=== PATIENT | female | born 2005 | race Caucasian/White ===

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

== ENCOUNTER 2024-06-10 09:41 | Outpatient (CLI) | payer OTHER ==
[2024-06-10 10:53] LABS: Amorphous Sediment,Urine Rare /hpf; Appearance,Urine Cloudy (Clear); Bacteria,Urine Occasional /hpf; Bilirubin,Urine Negative (Negative); Blood,Urine Negative (Negative); Budding Yeast,Urine Few /hpf; Color,Urine Light Yellow; Glucose,Urine (UA) Negative (Negative); Ketones,Urine Negative (Negative); Leukocyte Esterase,Urine Large (Negative); Mucus,Urine Rare /hpf; Nitrite,Urine Negative (Negative); Protein,Urine Negative (Negative); RBC,Urine 3 /hpf (0-5); Squamous Epithelial Cell,Urine 9 /hpf (0-4); Urobilinogen,Urine <2.0 mg/dL (<2.0); WBC,Urine 35 /hpf (0-5)
[2024-06-10 11:19] VITALS: BP 108/60; PULSE 83; RESP 16; TEMP 98
--- NOTE | 2024-06-14 11:13 | P.MSEPDOC ---
Presenting Problems - Arrival Data Date of Arrival on Unit: 06/10/24 Time of Arrival on Unit: 09:41 Mode of Transport: Ambulatory - Complaint OB-Reason for Admission/Chief Complaint: Pain Comment: sharp pain lower abd last night and 3 times this morning Medical History - Information : 1 Para: 0 Term: 0 : 0 Abortions: Spontaneous or Elective: 0 Number of Living Children: 0 - Gestational Age Gestational Age by MAXI (wks/days): 23 Weeks and 3 Days Review of Systems - Review of Systems Constitutional: No problems Breast: No problems ENT: No problems Cardiovascular: No problems Respiratory: No problems Gastrointestinal: No problems Genitourinary: No problems Musculoskeletal: No problems Neurological: No problems Skin: No problems Vital Signs - Temperature Temperature: 98.0 F Temperature Source: Temporal Artery Scan - Pulse Right Sitting Pulse Rate: 83 Pulse Assessment Method: Automatic Cuff - Respirations Respiratory Rate: 16 Oxygen Delivery Method: Room Air - Blood Pressure Right Arm Blood Pressure: 108/60 Blood Pressure Mean: 76 Blood Pressure Source: Automatic Cuff Medical Screen Scoring - Uterine Contractions Intensity: Mild Resting: Soft to palpation - Assessment - Baby A Baseline FHR: 130 Heart Rate - NICHD Category: Category I (Normal) NST: Reactive Physician Notification - Physician Notified Physician Notified Date: 06/10/24 Physician Notified Time: 11:01 Physician: Trina Jara Order Received: Yes (urine culture and d/c home) Maternal Triage Index - Non-Urgent/Priority 4 Non-Urgent Priority 4: Yes Criteria Met for Priority 4: reassuring fht for gestation, pt felt "slight" pain x1 in traige, urine sent for culture Disposition - Disposition OB Disposition: Discharge to home Discharge Date: 06/10/24 Discharge Time: 11:10 I agree with the RN Medical Screening Exam: Yes Case reviewed; plan agreed upon as documented in EMR&OBIX.: Yes Diagnosis: PELVIC AND PERINEAL PAIN
== END 2024-06-10 11:10 | disposition home or self-care (01) ==
LOC: FBPOP 09:41
PROVIDERS: ATTEND Obstetrics & Gynecology
CPT/HCPCS: 81001; 87077; 87086; 87186; 99213

== ENCOUNTER 2024-06-13 23:27 | Inpatient (IN) | payer OTHER ==
[2024-06-13] MEDS ORDERED: CARBOPROST TROMETHAMINE 250 MCG/ML 1 ML AMP IM PRN (23:46)
[2024-06-13] MEDS ORDERED: METHYLERGONOVINE 0.2 MG/ML 1 ML AMP IM PRN (23:46)
[2024-06-13] MEDS ORDERED: LIDOCAINE 0.5% (PF) 5 MG/ML (50 ML SDV) SQ PRN (23:46)
[2024-06-13] MEDS ORDERED: miSOPROStoL 200 MCG TAB PO PRN (23:46)
[2024-06-13] MEDS ORDERED: TERBUTALINE 1 MG/ML VIAL SQ PRN (23:46)
[2024-06-13] MEDS ORDERED: miSOPROStoL 200 MCG TAB RECTAL PRN (23:46)
[2024-06-13] MEDS ORDERED: OXYTOCIN 10 UNIT/ML 1 ML VIAL IM PRN (23:46)
[2024-06-14 00:26] LABS: Basophils % (A) 0 %; Eosinophils # (A) 0.2 k/uL (0-0.7); Eosinophils % (A) 3 %; HCT 29.5 % (34.0-46.0); HGB 10.2 gm/dL (11.4-16.0); Lymphocytes # (A) 2.3 k/uL (1.0-4.8); Lymphocytes % (A) 26 %; MCH 32.9 pg (25.0-35.0); MCHC 34.7 g/dL (31.0-37.0); MCV 94.9 fL (80.0-100.0); Monocytes # (A) 0.4 k/uL (0-1.0); Monocytes % (A) 5 %; Neutrophils # (A) 5.9 k/uL (1.3-7.7); Neutrophils % (A) 65 %; Platelet Count 288 k/uL (150-450); RBC 3.11 m/uL (3.80-5.40); RDW 12.4 % (11.5-15.5)
[2024-06-14] MEDS ORDERED: HYDROmorphone (PF) 1 MG/ML ONE (00:35)
[2024-06-14] MEDS ORDERED: ePHEDrine 50 MG/ML 1 ML VIAL ONE (00:35)
[2024-06-14] MEDS ORDERED: SUCCINYLCHOLINE CHLORIDE 200 MG/10 ML VIAL IV ONE (00:35)
[2024-06-14] MEDS ORDERED: ROCURONIUM 10 MG/ML (5 ML VIAL) IV ONE (00:35)
[2024-06-14] MEDS ORDERED: fentaNYL (PF) 50 MCG/ML 2 ML AMP ONE (00:35)
[2024-06-14] MEDS ORDERED: ceFAZolin 1,000 MG VIAL ONE (00:35)
[2024-06-14] MEDS ORDERED: OXYTOCIN 30 UNITS/500 ML NS BAG IV ONE (00:35)
[2024-06-14] MEDS ORDERED: METHYLERGONOVINE 0.2 MG/ML 1 ML AMP ONE (00:35)
[2024-06-14] MEDS ORDERED: PHENYLEPHRINE-0.9% NACL SYG 1,000 MCG/10 ML SYRINGE ONE (00:35)
[2024-06-14] MEDS ORDERED: WATER FOR INJECTION, STERILE 10 ML VIAL IV ONE (00:35)
[2024-06-14] MEDS ORDERED: SUGAMMADEX SODIUM 200 MG/2 ML SDV IV ONE (00:35)
[2024-06-14] MEDS ORDERED: PROPOFOL 10 MG/ML 20 ML VIAL IV ONE (00:35)
[2024-06-14] MEDS ORDERED: diphenhydrAMINE 25 MG CAP PO PRN (01:10)
[2024-06-14] MEDS ORDERED: ONDANSETRON 4 MG/2 ML VIAL IVP PRN (01:10)
[2024-06-14] MEDS ORDERED: diphenhydrAMINE 50 MG/ML 1 ML VIAL IVP PRN ×2 (01:10)
[2024-06-14] MEDS ORDERED: NALOXONE 0.4 MG/ML 1 ML VIAL IV PRN (01:10)
[2024-06-14] MEDS ORDERED: ZOLPIDEM 5 MG TAB PO PRN (01:10)
[2024-06-14] MEDS ORDERED: diphenhydrAMINE 50 MG CAP PO PRN (01:10)
[2024-06-14] MEDS ORDERED: METOCLOPRAMIDE 5 MG/ML 2 ML VIAL IVP PRN (01:10)
--- NOTE | 2024-06-14 01:20 | P.OP ---
Date of Procedure: 06/14/24 Preoperative Diagnosis: IUP at 24-0/7 weeks, active labor, placental abruption Postoperative Diagnosis: Same Procedure(s) Performed: section Anesthesia: KERRY Surgeon: Rahda Sanchez Records Manager #1: Alisha Lutz Estimated Blood Loss (ml): 327 IV fluids (ml): 500 Urine output (ml): 100 (Clear yellow) Pathology: other (Placenta) Condition: stable Disposition: observation Indications for Procedure: Placental abruption Operative Findings: Upon entering the uterus multiple blood clots were appreciated, fetus was noted to be high in the uterus delivered in a vertex presentation Description of Procedure: Patient was taken back to the operating suite where general anesthesia was obtained without difficulty by the anesthesia department. She was prepped and draped prior to administration of anesthesia Blanc catheter was placed in the labor and delivery suite. Pfannenstiel skin incision was made with a scalpel and carried through to the underlying layer of fascia. The fascia was incised in the midline and extended laterally. The superior aspect of the fascial incision was then grasped with Marcela clamps, elevated and the underlying rectus muscle was dissected off sharply. The inferior aspect of the fascial incision was then grasped with Marcela clamps, elevated and the underlying rectus muscle was dissected off sharply. The rectus muscles were the midline the peritoneum was identified and entered. The bladder blade was inserted into the pelvis. Hysterotomy incision was made infant was encountered in a vertex p resentation delivered umbilical cord was doubly clamped and cut. was handed off to waiting RN/pediatric team. Placenta was delivered manually and the uterus was cleared of all clots and debris. The uterus was delivered from the abdomen. The hysterotomy incision was closed with 0 Vicryl in a running locked fashion, a second imbricating suture was performed. A small amount of bleeding was noted on the lateral area of the hysterotomy incision therefore a [id number] suture was used to obtain hemostasis. The uterus was returned to the abdomen and the gutters were cleared of all clots and debris. The hysterotomy incision was inspected and found to be hemostatic. The rectus muscles were then loosely reapproximated. Any points of bleeding on the rectus muscles were made hemostatic with the Bovie. The fascia was then closed with 0 Vicryl in a running fashion from 1 lateral edge to the other. The subcutaneous tissue was noted to be hemostatic and closed with 3-0 Vicryl. The skin was then closed with 4-0 Vicryl in a subcuticular fashion. Steri-Strips and sterile dressings were applied. All counts were to be correct x 2. Patient tolerated procedure well.
--- NOTE | 2024-06-14 01:21 | P.HPOB ---
History of Present Illness H&P Date: 06/14/24 Chief Complaint: IUP at 23-6/7 weeks, contractions 19-year-old at 23-6/7 weeks, is dated by last menstrual period equal to 11-week ultrasound. Patient recently had her 20-week ultrasound revealing a slightly shortened cervix at 2.4, 2.1 with pressure some funneling was appreciated. Patient states throughout the day she began having pains coming and going that became more uncomfortable through the evening. She denied vaginal bleeding prior to presentation. Patient presented to labor and delivery very tearful/painful with noted vaginal bleeding on her underwear. Patient on exam was felt to be completely dilated with a bulging bag of water. On exam the bag of water was noted to be extruding from the vagina. blood work this patient is a blood type of A+ Review of Systems Constitutional: Denies chills, Denies fatigue, Denies fever Ears, nose, mouth and throat: Denies headache Cardiovascular: Denies leg edema Respiratory: Denies dyspnea Gastrointestinal: Denies nausea, Denies vomiting Genitourinary: Reports Past Medical History Past Medical History: No Reported History History of Any Multi-Drug Resistant Organisms: None Reported Past Surgical History: No Surgical Hx Reported Smoking Status: Never smoker Medications and Allergies Home Medications Medication Instructions Recorded Confirmed Type Ferrous Sulfate [Iron] 325 mg PO DAILY 06/10/24 06/10/24 History Vit No.179/Iron/Folic 1 each PO DAILY 06/10/24 06/10/24 History [ Tablet] Allergies Allergy/AdvReac Type Severity Reaction Status Date / Time No Known Allergies Allergy Verified 06/10/24 09:45 Exam Osteopathic Statement: *. No significant issues noted on an osteopathic structural exam other than those noted in the History and Physical/Consult. Intake and Output 06/13/24 06/13/24 06/14/24 14:59 22:59 06:59 Other: Weight 63.957 kg Targeted exam is done in the state in general is a well-nourished well-developed female in active labor, breathing is nonlabored, abdomen is gravid and appropriate for gestational age of 24 weeks. On cervical exam bulging bag of water within the entire vaginal vault is appreciated, rupture of membranes reveals initially clear fluid. Patient attempted pushing with extrusion of multiple blood clots. heart tones were appreciated via Doppler 120s. Results Result Diagrams: 06/13/24 23:45 Abnormal Lab Results - Last 24 Hours (Table) 06/13/24 Range/Units 23:45 RBC 3.11 L (3.80-5.40) m/uL Hgb 10.2 L (11.4-16.0) gm/dL Hct 29.5 L (34.0-46.0) % Assessment and Plan (1) 24 weeks gestation of Current Visit: Yes Status: Acute Code(s): Z3A.24 - 24 WEEKS GESTATION OF SNOMED Code(s): 260314014 (2) Active labor Current Visit: Yes Status: Acute Code(s): EXY6444 - SNOMED Code(s): 066030000 (3) Placental abruption Current Visit: Yes Status: Acute Code(s): O45.90 - PREMATURE SEPARATION OF PLACENTA, UNSP, UNSP TRIMESTER SNOMED Code(s): 095003860 Plan: 19-year-old G2, P0 at 2 3-6/7 weeks that presents in active labor. Patient was noted to be completely dilated with membranes visualized in the vaginal vault. Rupture membranes revealing clear fluid initially followed by extrusion of multiple clots and continued bleeding. Placental abruption was diagnosed and patient was taken back for emergent section. Significant other was counseled on need for section questions were answered, anesthesia is in room.
[2024-06-14] MEDS: LACTATED RINGERS 1,000 ML IV SCH ×2 (02:08→12:41)
[2024-06-14 02:19] VITALS: RESP 16
[2024-06-14] MEDS: OXYTOCIN 30 UNITS/500 ML NS 30 UNIT in SALINE 1 500ML.BAG IV SCH (03:03)
[2024-06-14] MEDS: HYDROmorphone PCA 10 MG/50 ML BAG IV PRN (03:03)
[2024-06-14] MEDS: IBUPROFEN IV 800 MG in SODIUM CHLORIDE 0.9% 250 ML IV SCH (07:29)
[2024-06-14] MEDS: SENNOSIDES-DOCUSATE SODIUM 1 EACH TAB PO SCH (07:34)
[2024-06-14] MEDS: IBUPROFEN 600 MG TAB PO SCH (07:34)
[2024-06-14] MEDS: PRENATAL VIT-IRON-FOLIC ACID 1 EACH TABLET PO SCH (10:18)
[2024-06-14] MEDS: ACETAMINOPHEN IV (For NPO) 1,000 MG in EMPTY BAG 1 BAG IVPB SCH (10:18)
[2024-06-14] MEDS: FERROUS SULFATE 325 MG TAB PO SCH (10:18)
[2024-06-14 10:37] LABS: Basophils % (A) 0 %; Eosinophils # (A) 0.1 k/uL (0-0.7); Eosinophils % (A) 1 %; Lymphocytes # (A) 1.2 k/uL (1.0-4.8); Lymphocytes % (A) 11 %; MCH 32.5 pg (25.0-35.0); MCHC 33.4 g/dL (31.0-37.0); MCV 97.2 fL (80.0-100.0); Mean Platelet Volume 7.5; Monocytes # (A) 0.4 k/uL (0-1.0); Monocytes % (A) 3 %; Neutrophils # (A) 9.2 k/uL (1.3-7.7); Neutrophils % (A) 84 %; Platelet Count 220 k/uL (150-450); RBC 1.96 m/uL (3.80-5.40); RDW 12.1 % (11.5-15.5); WBC 10.9 k/uL (4.0-11.0)
[2024-06-14 10:53] LABS: HCT 19.1 % (34.0-46.0); HGB 6.4 gm/dL (11.4-16.0)
[2024-06-14] MEDS: ACETAMINOPHEN TAB 500 MG TAB PO SCH (11:35)
[2024-06-14] MEDS: SIMETHICONE 80 MG CHEWABLE PO PRN (19:44)
[2024-06-14] MEDS: SUGAMMADEX SODIUM 200 MG/2 ML SDV IV ONE (19:57)
[2024-06-15 06:44] LABS: Basophils % (A) 0 %; Eosinophils # (A) 0.2 k/uL (0-0.7); Eosinophils % (A) 2 %; HCT 21.7 % (34.0-46.0); HGB 7.1 gm/dL (11.4-16.0); Lymphocytes # (A) 1.5 k/uL (1.0-4.8); Lymphocytes % (A) 18 %; MCH 32.4 pg (25.0-35.0); MCHC 32.9 g/dL (31.0-37.0); MCV 98.7 fL (80.0-100.0); Mean Platelet Volume 7.9; Monocytes # (A) 0.4 k/uL (0-1.0); Monocytes % (A) 5 %; Neutrophils % (A) 74 %; Platelet Count 216 k/uL (150-450); RDW 12.4 % (11.5-15.5); WBC 8.1 k/uL (4.0-11.0)
[2024-06-15 07:39] VITALS: BP 90/58; PULSE 72; TEMP 98.1
--- NOTE | 2024-07-01 18:28 | CDI ---
Documentation Clarification Form Date: 07/01/2024 06:15:12 PM From: Natalie Moore Admit Date: 06/13/2024 11:48:00 PM Patient Name: Galilea Conteh Visit Number: [id number] Discharge Date: 06/15/2024 05:38:00 PM ATTENTION: The Clinical Documentation Specialists (CDI) and [facility] Coding Staff appreciate your assistance in clarifying documentation. Please respond to the clarification below the line at the bottom and electronically sign. The CDI & [facility] Coding staff will review the response and follow-up if needed. Please note: Queries are made part of the Legal Health Record. If you have any questions, please contact the author of this message via ITS. Doctor/Provider: Radha Sanchez Your patient has a hemoglobin/hematocrit level of 6.4 and 19.1 on 06/14/24. Please clarify if there is an additional diagnosis and/or clinical significance related to these lab values. History/Risk Factors: patient is a at 23 6/7 weeks . Clinical indicators: patient presented at 23 6/7 weeks with pain, very tearful, noted vaginal bleeding, and completely dilated with a bulging bag of water. Rupture revealed clear fluid followed by extrusion of multiple clots and continued bleeding. Patient attempted to push, however; placental abruption was diagnosed and she was taken back for an emergent section. EBL during C/S: 327 HGB 06/13/24 10.2, 06/14/24 6.4, 06/15/24 7.1 HCT 06/13/24 29.5, 06/14/24 19.1, 06/15/24 21.7 Treatment: patient underwent emergent section and was transfused with 1 unit PRBC Is there an additional diagnosis and/or clinical significance related to the above lab result/information: [ X] Acute blood loss anemia [ ] Acute on chronic blood loss anemia [ ] No additional diagnosis/Not clinically significant [ ] Unable to determine [ ] Other, please specify MTDD
== END 2024-06-15 17:38 | disposition home or self-care (01) | DRG 540 ==
LOC: FBPOP 23:27 → 4FBP 23:48
PROVIDERS: ADMIT Obstetrics & Gynecology Obstetrics; ATTEND Obstetrics & Gynecology
PROC: 30233N1 Transfusion of Nonautologous Red Blood Cells into Peripheral Vein, Percutaneous Approach (ICD-10-PCS; principal; 2024-06-14 00:30)
PROC: 10D00Z1 Extraction of Products of Conception, Low, Open Approach (ICD-10-PCS; principal; 2024-06-14 00:30)
PROC: 10907ZC Drainage of Amniotic Fluid, Therapeutic from Products of Conception, Via Natural or Artificial Opening (ICD-10-PCS; principal; 2024-06-14 00:30)
DX: O45.92 Premature separation of placenta, unspecified, second trimester (principal); O26.872 Cervical shortening, second trimester; O99.02 Anemia complicating childbirth; D62 Acute posthemorrhagic anemia; Z79.899 Other long term (current) drug therapy; Z28.310 Unvaccinated for COVID-19; Z3A.23 23 weeks gestation of pregnancy; Z37.0 Single live birth
CPT/HCPCS: 85025; 86850; 86900; 86901; 86920; 88305; 99215

== ENCOUNTER 2024-11-28 16:38 | Emergency (ER) | payer OTHER ==
[2024-11-28 16:45] VITALS: RESP 16; TEMP 98.8
[2024-11-28] MEDS: SODIUM CHLORIDE 0.9% 1,000 ML IV ONE (17:40)
--- NOTE | 2024-11-28 17:45 | ED ---
Abdominal Pain HPI - General Chief Complaint: Abdominal Pain Stated Complaint: preg cramping Time Seen by Provider: 11/28/24 16:48 Source: patient Mode of arrival: ambulatory Limitations: no limitations - History of Present Illness Initial Comments: 19-year-old female presenting with chief complaint of pelvic pain. She believes she is 5 weeks , LMP October 24 positive at-home test. This is her third , she has had 1 miscarriage and 1 stillbirth. No vaginal bleeding. No back pain. No dysuria or hematuria. No urgency or frequency. She is having nausea which has been happening throughout her . - Related Data Home Medications Medication Instructions Recorded Confirmed Ferrous Sulfate [Iron] 325 mg PO DAILY 06/10/24 06/10/24 Vit No.179/Iron/Folic 1 each PO DAILY 06/10/24 06/10/24 [ Tablet] Previous Rx's Medication Instructions Recorded Vit No.179/Iron/Folic 1 each PO DAILY #30 tab 11/28/24 [ Tablet] Allergies Allergy/AdvReac Type Severity Reaction Status Date / Time No Known Allergies Allergy Verified 06/10/24 09:45 Review of Systems ROS Statement: Those systems with pertinent positive or pertinent negative responses have been documented in the HPI. ROS Other: All systems not noted in ROS Statement are negative. Past Medical History Past Medical History: No Reported History History of Any Multi-Drug Resistant Organisms: None Reported Past Surgical History: No Surgical Hx Reported Past Psychological History: Anxiety, Bipolar, Depression Smoking Status: Never smoker Past Alcohol Use History: None Reported Past Drug Use History: None Reported General Exam Limitations: no limitations General appearance: alert, in no apparent distress Head exam: Present: atraumatic, normocephalic, normal inspection Eye exam: Present: normal appearance, EOMI Neck exam: Present: normal inspection. Absent: meningismus Respiratory exam: Present: normal lung sounds bilaterally. Absent: respiratory distress, wheezes, rales, rhonchi, stridor Cardiovascular Exam: Present: regular rate, normal rhythm, normal heart sounds. Absent: systolic murmur, diastolic murmur, rubs, gallop, clicks GI/Abdominal exam: Present: soft. Absent: distended, tenderness, guarding, rebound, rigid Neurological exam: Present: alert, oriented X3 Psychiatric exam: Present: normal affect, normal mood Skin exam: Present: warm, dry, normal color Course Vital Signs 11/28/24 11/28/24 16:42 19:47 Temperature 98.8 F Pulse Rate 87 78 Respiratory 16 16 Rate Blood Pressure 113/63 111/64 O2 Sat by Pulse 99 100 Oximetry Medical Decision Making - Medical Decision Making Was pt. sent in by a medical professional or institution ([facility], MANAGER MANUFACTURING, urgent care, hospital, or skilled nursing...) When possible be specific @ -No Did you speak to anyone other than the patient for history (EMS, parent, family, police, friend...)? What history was obtained from this source @ -No Did you review nursing and triage notes (agree or disagree)? Why? @ -I reviewed and agree with nursing and triage notes Were old charts reviewed (outside hosp., previous admission, EMS record, old EKG, old radiological studies, urgent care reports/EKG's, skilled nursing records)? Report findings @ -No old charts were reviewed Differential Diagnosis (chest pain, altered mental status, abdominal pain women, abdominal pain men, vaginal bleeding, weakness, fever, dyspnea, syncope, headache, dizziness, GI bleed, back pain, seizure, CVA, palpatations, mental health, musculoskeletal)? @ -MDM Differential Abdominal Pain Women: Appendicitis, Cholecystitis, diverticulosis, ischemic bowel, pancreatitis, hepatitis, UTI, gastroenteritis, AAA, incarcerated hernia, bowel obstruction, constipation, inflammatory bowel, hepatitis, peptic ulcer disease, splenic infarction, perforated viscus, vulvitis, ovarian torsion, PID, kidney stone, shandra centa abruption... This is not meant to be an all-inclusive list EKG interpreted by me (3pts min.). @ -As above X-rays interpreted by me (1pt min.). @ -None done CT interpreted by me (1pt min.). @ -None done U/S interpreted by me (1pt. min.). @ -Ultrasound shows no evidence of intrauterine gestational sac. If positive beta-hCG this could represent early , ectopic , or spontaneous . What testing was considered but not performed or refused? (CT, X-rays, U/S, labs)? Why? @ -None What meds were considered but not given or refused? Why? @ -None Did you discuss the management of the patient with other professionals (professionals i.e. Dr., PA, MANAGER MANUFACTURING, lab, RT, psych nurse, social media marketing specialist, hose turner, teacher, child support case officer, registered nurse hh case manager)? Give summary @ -No Was smoking cessation discussed for >3mins.? @ -No Was critical care preformed (if so, how long)? @ -No Were there social determinants of health that impacted care today? How? (Homelessness, low income, unemployed, alcoholism, drug addiction, transportation, low edu. Level, literacy, decrease access to med. care, fdc, rehab)? @ -No Was there de-escalation of care discussed even if they declined (Discuss DNR or withdrawal of care, Hospice)? DNR status @ -No What co-morbidities impacted this encounter? (DM, HTN, Smoking, COPD, CAD, Cancer, CVA, ARF, Chemo, Hep., AIDS, mental health diagnosis, sleep apnea, morbid obesity)? @ -None Was patient admitted / discharged? Hospital course, mention meds given and route, prescriptions, significant lab abnormalities, going to OR and other pertinent info. @ -19-year-old female presenting with chief complaint of pelvic pain. She estimates herself to be about 5 weeks . No vaginal bleeding. History and physical examination are conducted. Lab work shows no leukocytosis or anemia. hCG is 13,338.6. Urine shows signs of contamination with 9 squamous cells. Ultrasound shows no intrauterine gestational sac. This may be due to early but cannot rule out ectopic or spontaneous . Patient is educated on today's findings. She is provided with an order for repeat beta-hCG in 48 hours. She will follow-up with her WIRE WEAVING LOOM SETTER Dr. Sanchez. She is sent vitamins. Report back to ER with any new or worsening symptoms. Discussed return parameters and answered all questions. Patient conveyed verbal understanding and agreed to the plan. I discussed this case in detail with my attending Dr. Ring Undiagnosed new problem with uncertain prognosis? @ -No Drug Therapy requiring intensive monitoring for toxicity (Heparin, Nitro, Insulin, Cardizem)? @ -No Were any procedures done? @ -No Diagnosis/symptom? @ -Threatened Acute, or Chronic, or Acute on Chronic? @ -Acute Uncomplicated (without systemic symptoms) or Complicated (systemic symptoms)? @ -Uncomplicated Side effects of treatment? @ -No Exacerbation, Progression, or Severe Exacerbation? @ -No Poses a threat to life or bodily function? How? (Chest pain, USA, PA, pneumonia, PE, COPD, DKA, ARF, appy, cholecystitis, CVA, Diverticulitis, Homicidal, Suicidal, threat to staff... and all critical care pts) @ -Low likelihood - Lab Data Result diagrams: 11/28/24 17:41 11/28/24 17:41 Lab Results 11/28/24 11/28/24 11/28/24 Range/Units 17:41 17:41 17:47 WBC 9.8 (4.0-11.0) k/uL RBC 4.18 (3.80-5.40) m/uL Hgb 12.5 (11.4-16.0) gm/dL Hct 40.0 (34.0-46.0) % MCV 95.7 (80.0-100.0) fL MCH 30.0 (25.0-35.0) pg MCHC 31.3 (31.0-37.0) g/dL RDW 12.7 (11.5-15.5) % Plt Count 413 (150-450) k/uL MPV 7.3 Neutrophils % 74 % Lymphocytes % 18 % Monocytes % 5 % Eosinophils % 2 % Basophils % 0 % Neutrophils # 7.2 (1.3-7.7) k/uL Lymphocytes # 1.8 (1.0-4.8) k/uL Monocytes # 0.5 (0-1.0) k/uL Eosinophils # 0.2 (0-0.7) k/uL Basophils # 0.0 (0-0.2) k/uL Sodium 137 (137-145) mmol/L Potassium 4.3 (3.5-5.1) mmol/L Chloride 104 (98-107) mmol/L Carbon Dioxide 24 (22-30) mmol/L Anion Gap 9 mmol/L BUN 13 (7-17) mg/dL Creatinine 0.58 (0.52-1.04) mg/dL Est GFR (CKD-EPI)AfAm >90 (>60 ml/min/1.73 sqM) Est GFR (CKD-EPI)NonAf >90 (>60 ml/min/1.73 sqM) Glucose 88 (74-99) mg/dL Calcium 10.1 (8.4-10.2) mg/dL Total Bilirubin 0.4 (0.2-1.3) mg/dL AST 18 (14-36) U/L ALT 13 (4-34) U/L Alkaline Phosphatase 43 (38-126) U/L Total Protein 7.4 (6.3-8.2) g/dL Albumin 4.6 (3.5-5.0) g/dL HCG, Quant 62016.6 mIU/mL Urine Color Light Yellow Urine Appearance Turbid H (Clear) Urine pH 6.5 (5.0-8.0) Ur Specific [place] 1.022 (1.001-1.035) Urine Protein Negative (Negative) Urine Glucose (UA) Negative (Negative) Urine Ketones Negative (Negative) Urine Blood Negative (Negative) Urine Nitrite Negative (Negative) Urine Bilirubin Negative (Negative) Urine Urobilinogen <2.0 (<2.0) mg/dL Ur Leukocyte Esterase Negative (Negative) Urine RBC 3 (0-5) /hpf Urine WBC 1 (0-5) /hpf Ur Squamous Epith Cells 9 H (0-4) /hpf Amorphous Sediment Many H (None) /hpf Disposition Clinical Impression: Threatened miscarriage Disposition: HOME SELF-CARE Condition: Good Instructions (If sedation given, give patient instructions): Threatened Miscarriage (ED) Additional Instructions: Follow-up with WIRE WEAVING LOOM SETTER. Report back to ER with any new or worsening symptoms. Obtain repeat beta-hCG in 48 hours Prescriptions: Vit No.179/Iron/Folic [ Tablet] 1 each PO DAILY #30 tab Is patient prescribed a controlled substance at d/c from ED?: No Referrals: None,Stated [REFERRING] - 1-2 days Radha Sanchez DO [Primary Care Provider] - 1-2 days Time of Disposition: 19:37
[2024-11-28 17:54] LABS: Basophils % (A) 0 %; Eosinophils # (A) 0.2 k/uL (0-0.7); Eosinophils % (A) 2 %; HGB 12.5 gm/dL (11.4-16.0); Lymphocytes # (A) 1.8 k/uL (1.0-4.8); Lymphocytes % (A) 18 %; MCHC 31.3 g/dL (31.0-37.0); MCV 95.7 fL (80.0-100.0); Mean Platelet Volume 7.3; Monocytes # (A) 0.5 k/uL (0-1.0); Monocytes % (A) 5 %; Neutrophils # (A) 7.2 k/uL (1.3-7.7); Neutrophils % (A) 74 %; Platelet Count 413 k/uL (150-450); RBC 4.18 m/uL (3.80-5.40); RDW 12.7 % (11.5-15.5); WBC 9.8 k/uL (4.0-11.0)
[2024-11-28 18:17] LABS: Amorphous Sediment,Urine Many /hpf; Appearance,Urine Turbid (Clear); Bilirubin,Urine Negative (Negative); Blood,Urine Negative (Negative); Color,Urine Light Yellow; Glucose,Urine (UA) Negative (Negative); Ketones,Urine Negative (Negative); Leukocyte Esterase,Urine Negative (Negative); Nitrite,Urine Negative (Negative); PH, Urine 6.5 (5.0-8.0); Protein,Urine Negative (Negative); RBC,Urine 3 /hpf (0-5); Specific Gravity,Urine 1.022 (1.001-1.035); Squamous Epithelial Cell,Urine 9 /hpf (0-4); Urobilinogen,Urine <2.0 mg/dL (<2.0); WBC,Urine 1 /hpf (0-5)
[2024-11-28 18:27] LABS: ALT 13 U/L (4-34); AST 18 U/L (14-36); African American GFR (CKD) >90 (>60 ml/min/1.73 sqM); Albumin 4.6 g/dL (3.5-5.0); Alkaline Phosphatase 43 U/L (38-126); Anion Gap 9 mmol/L; Blood Urea Nitrogen 13 mg/dL (7-17); Calcium 10.1 mg/dL (8.4-10.2); Carbon Dioxide 24 mmol/L (22-30); Chloride 104 mmol/L (98-107); Glucose 88 mg/dL (74-99); Non-African American GFR(CKD) >90 (>60 ml/min/1.73 sqM); Potassium 4.3 mmol/L (3.5-5.1); Sodium 137 mmol/L (137-145); Total Bilirubin 0.4 mg/dL (0.2-1.3); Total Protein 7.4 g/dL (6.3-8.2)
[2024-11-28 18:41] LABS: HCG,Quantitative Serum 13338.6 mIU/mL
--- NOTE | 2024-11-28 19:20 | US ---
EXAMINATION TYPE: Transabdominal DATE OF EXAM: 11/28/2024 7:10 PM COMPARISON: Prior ultrasound study 11/17/2020. CLINICAL INDICATION: Female, 19 years old with history of pain; Pelvic cramping TECHNIQUE: Transabdominal (TA) FINDINGS: EXAM MEASUREMENTS: GESTATIONAL AGE / DATING Physician Established: Not yet established Dates by LMP: (5 weeks/2 days) EDC: 07/29/2025 Dates by First Scan: No previous this is first scan Dates by Current Scan for: No IUP seen at this time MATERNAL ANATOMY Uterus: 7.3 x 4.1 x 5.8cm, thickened endometrium Right Ovary: 2.7 x 1.9 x 2.2cm Left Ovary: 2.6 x 1.4 x 1.7cm Post CDS / Adnexa: wnl Presence of free fluid: no Presence of corpus luteal cyst: right ovary - 1.7 x 1.1 x 1.7cm Presence of subchorionic bleed: no GESTATION / SURVEY IUP: No IUP seen at this time Date of LMP: 10/22/2024 Beta HcG (if available): 13,338.6 IMPRESSION: 1. No evidence of intrauterine gestational sac, correlate with B-hCG. If positive, this could represe nt early , ectopic or spontaneous . Follow up pelvic ultrasound in 5-7 day s and serial beta hCG studies are recommended. [facility], , 11/28/2024 7:17 PM
[2024-11-28 20:25] VITALS: BP 111/64; PULSE 78
== END 2024-11-28 19:47 | disposition home or self-care (01) ==
LOC: EC 16:38
DX: O20.0 Threatened abortion (principal)
CPT/HCPCS: 36415; 76801; 80053; 81001; 84702; 85025; 96360; 99284

== ENCOUNTER 2025-01-27 12:00 | Emergency (ER) | payer OTHER ==
[2025-01-27 12:11] VITALS: BP 100/64; PULSE 88; RESP 18; TEMP 98.3
--- NOTE | 2025-01-27 13:21 | ED ---
General Adult HPI - General Chief complaint: Recheck/Abnormal Lab/Rx Stated complaint: fall, 14 weeks Time Seen by Provider: 01/27/25 13:20 Source: patient Mode of arrival: ambulatory Limitations: no limitations - Related Data Home Medications Medication Instructions Recorded Confirmed Ferrous Sulfate [Iron] 325 mg PO DAILY 06/10/24 06/10/24 Vit No.179/Iron/Folic 1 each PO DAILY 06/10/24 06/10/24 [ Tablet] Previous Rx's Medication Instructions Recorded Vit No.179/Iron/Folic 1 each PO DAILY #30 tab 11/28/24 [ Tablet] Allergies Allergy/AdvReac Type Severity Reaction Status Date / Time No Known Allergies Allergy Verified 01/27/25 12:11 Review of Systems ROS Statement: Those systems with pertinent positive or pertinent negative responses have been documented in the HPI. ROS Other: All systems not noted in ROS Statement are negative. Past Medical History Past Medical History: No Reported History History of Any Multi-Drug Resistant Organisms: None Reported Past Surgical History: Section Past Psychological History: Anxiety, Bipolar, Depression Smoking Status: Never smoker Past Alcohol Use History: None Reported Past Drug Use History: None Reported General Exam Limitations: no limitations Course Vital Signs 01/27/25 12:07 Temperature 98.3 F Pulse Rate 88 Respiratory 18 Rate Blood Pressure 100/64 O2 Sat by Pulse 99 Oximetry Medical Decision Making - Medical Decision Making Was pt. sent in by a medical professional or institution ([facility], CORE DRILL OPERATOR HELPER, urgent care, hospital, or long-term...) When possible be specific @ -[No] Did you speak to anyone other than the patient for history (EMS, parent, family, police, friend...)? What history was obtained from this source @ -[No] Did you review nursing and triage notes (agree or disagree)? Why? @ -[I reviewed and agree with nursing and triage notes] Were old charts reviewed (outside hosp., previous admission, EMS record, old EKG, old radiological studies, urgent care reports/EKG's, long-term records)? Report findings @ -[No old charts were reviewed] Differential Diagnosis? @ -[chest pain, altered mental status, abdominal pain women, abdominal pain men, vaginal bleeding, weakness, fever, dyspnea, syncope, headache, dizziness, GI bleed, back pain, seizure, CVA, palpatations, mental health, musculoskeletal] EKG interpreted by me (3pts min.). @ -[As above] X-rays interpreted by me (1pt min.). @ -[None done] CT interpreted by me (1pt min.). @ -[None done] U/S interpreted by me (1pt. min.). @ -[None done] What testing was considered but not performed or refused? (CT, X-rays, U/S, labs)? Why? @ -[None] What meds were considered but not given or refused? Why? @ -[None] Did you discuss the management of the patient with other professionals (professionals i.e. DrLolly, PA, CORE DRILL OPERATOR HELPER, lab, RT, psych nurse, social worker delinquency prevention, csr technician, t eacher, grant officer, hospice case manager)? Give summary @ -[No] Was smoking cessation discussed for >3mins.? @ -[No] Was critical care preformed (if so, how long)? @ -[No] Were there social determinants of health that impacted care today? How? (Homelessness, low income, unemployed, alcoholism, drug addiction, transportation, low edu. Level, literacy, decrease access to med. care, long-term, rehab)? @ -[No] Was there de-escalation of care discussed even if they declined (Discuss DNR or withdrawal of care, Hospice)? DNR status @ -[No] What co-morbidities impacted this encounter? (DM, HTN, Smoking, COPD, CAD, Cancer, CVA, ARF, Chemo, Hep., AIDS, mental health diagnosis, sleep apnea, morbid obesity)? @ -[None] Was patient admitted / discharged? Hospital course, mention meds given and route, prescriptions, significant lab abnormalities, going to OR and other pertinent info. @ -[hospital course] Undiagnosed new problem with uncertain prognosis? @ -[No] Drug Therapy requiring intensive monitoring for toxicity (Heparin, Nitro, Insulin, Cardizem)? @ -[No] Were any procedures done? @ -[No] Diagnosis/symptom? @ -[default] Acute, or Chronic, or Acute on Chronic? @ -[default] Uncomplicated (without systemic symptoms) or Complicated (systemic symptoms)? @ -[default] Side effects of treatment? @ -[No] Exacerbation, Progression, or Severe Exacerbation? @ -[No] Poses a threat to life or bodily function? How? (Chest pain, USA, MD, pneumonia, PE, COPD, DKA, ARF, appy, cholecystitis, CVA, Diverticulitis, Homicidal, Suicidal, threat to staff... and all critical care pts) @ -[No] Disposition Referrals: None,Stated [Primary Care Provider] - 1-2 days
--- NOTE | 2025-01-27 13:22 | US ---
EXAMINATION TYPE: Transabdominal DATE OF EXAM: 01/27/2025 12:58 PM COMPARISON: US(11/28/2024 CLINICAL INDICATION: Female, 19 years old with history of fall; fall at work about an hour before com ing into ER, no pain or bleeding TECHNIQUE: Transabdominal (TA) with grayscale and color Doppler imaging including first trimester pre gnancy. FINDINGS: EXAM MEASUREMENTS: GESTATIONAL AGE / DATING Physician Established: (8 weeks/0 days) EDC: 07/29/25 Dates by First Scan: None Dates by Current Scan for: (13 weeks/1 days) EDC: 08/03/2025 MATERNAL ANATOMY Uterus: 10.3x8.6x9.2cm Placenta: Anterior placenta. Hypoechoic/cystic area seen: 1.8x0.8x0.9cm Right Ovary: not visualized due to overlying bowel Left Ovary: not visualized due to overlying bowel Post CDS / Adnexa: wnl Presence of free fluid: n/a Presence of corpus luteal cyst: n/a Presence of subchorionic bleed: n/a GESTATION / SURVEY CRL: 68.8 (13 weeks/1 days) Gestational Sac morphology: Normal Yolk Sac (normal less than 6mm): not seen at this time Cardiac Activity/Heart Rate: 149 bpm Rhythm: Normal IUP: Viable IUP Beta HcG (if available): Not available at this time IMPRESSION: 1. Single live intrauterine with gestational age of 13 weeks 1 day by CRL. This is much lar nichelle and discordant with established dates by LMP (8 weeks 0 days). Correlate as to accuracy of recall of LMP. 2. Anterior placenta with an internal cystic/hypoechoic area measuring 1.8 x 0.8 x 0.9 cm. A prominen t venous eden or chorioangioma are favored. An intraparenchymal hematoma is considered less likely gi betty the more cystic appearance. Follow-up ultrasound recommended to ensure stability of the finding. 3. Additional follow-up can be performed to assess for appropriate interval growth. In addition, feta l survey performed at 18-20 weeks. [facility], Workstation: [id number], 01/27/2025 1:20 PM
== END 2025-01-27 16:33 | disposition left against medical advice (07) ==
LOC: EC 12:00
DX: Z53.21 Procedure and treatment not carried out due to patient leaving prior to being seen by health care provider (principal)
CPT/HCPCS: 76801; 99499

== ENCOUNTER → 2025-04-08 | Outpatient (CLI) | payer OTHER ==
[2025-04-08 15:18] VITALS: BP 102/57; PULSE 81; RESP 16; TEMP 97.8
--- NOTE | 2025-05-26 10:08 | P.MSEPDOC ---
Presenting Problems - Arrival Data Date of Arrival on Unit: 04/08/25 Time of Arrival on Unit: 12:18 Mode of Transport: Ambulatory - Complaint OB-Reason for Admission/Chief Complaint: Other Comment: numbness in rt hip and leg for 30 minutes at work. then a sudden pain in rt side. didnt last long. hx of 24 week demise, abruption and emerency c/s. Medical History - Information : 2 Para: 0 Term: 0 : 0 Abortions: Spontaneous or Elective: 1 Number of Living Children: 0 - Gestational Age Gestational Age by MAXI (wks/days): 24 Weeks and 0 Days - History Complications: Other Review of Systems - Review of Systems Constitutional: No problems Breast: No problems ENT: No problems Cardiovascular: No problems Respiratory: No problems Gastrointestinal: No problems Genitourinary: No problems Musculoskeletal: No problems Neurological: No problems Skin: No problems Vital Signs - Temperature Temperature: 97.8 F Temperature Source: Oral - Pulse Radial Pulse Rate: 81 Pulse Assessment Method: Automatic Cuff - Respirations Respiratory Rate: 16 Oxygen Delivery Method: Room Air O2 Sat by Pulse Oximetry: 99 - Blood Pressure Right Arm Blood Pressure: 102/57 Blood Pressure Mean: 72 Blood Pressure Source: Automatic Cuff Medical Screen Scoring - Uterine Contractions Intensity: Absent - Assessment - Baby A Baseline FHR: 140 Heart Rate - NICHD Category: Category I (Normal) Physician Notification - Physician Notified Physician Notified Date: 04/08/25 Physician Notified Time: 12:45 Physician: Alisha Lutz Order Received: Yes (january discharge home after evaluation) Maternal Triage Index - Scheduled/Requesting Priority 5 Scheduled/Requesting Priority 5: Yes Criteria Met for Priority 5: see above Disposition - Disposition OB Disposition: Triage, Discharge to home Discharge Date: 04/08/25 Discharge Time: 13:00 I agree with the RN Medical Screening Exam: Yes Physician's MSE Comment: I have neither seen nor examined the patient Case reviewed; plan agreed upon as documented in EMR&OBIX.: Yes Diagnosis: RELATED CONDITIONS, UNSPECIFIED, SECOND TRIMESTER Additional Diagnoses: I have neither seen nor examined the patient
== END ==
LOC: FBPOP 12:07
PROVIDERS: ATTEND Obstetrics & Gynecology
DX: O26.892 Other specified pregnancy related conditions, second trimester (principal); R20.0 Anesthesia of skin; M25.551 Pain in right hip; Z3A.24 24 weeks gestation of pregnancy
CPT/HCPCS: 99213

== ENCOUNTER 2025-04-20 15:35 | Outpatient (CLI) | payer OTHER ==
[2025-04-20] MEDS: BETAMET ACET-BETAMETH SOD PHOS 6 MG/ML MDV IM SCH (15:52)
== END 2025-04-20 15:56 | disposition home or self-care (01) ==
LOC: FBPOP 15:35
PROVIDERS: ATTEND Obstetrics & Gynecology Obstetrics
DX: O60.10X0 Preterm labor with preterm delivery, unspecified trimester, not applicable or unspecified (principal); O45.90 Premature separation of placenta, unspecified, unspecified trimester; Z3A.00 Weeks of gestation of pregnancy not specified
CPT/HCPCS: 96372; J0702

== ENCOUNTER 2025-04-21 15:14 | Outpatient (CLI) | payer OTHER ==
[2025-04-21] MEDS ORDERED: BETAMET ACET-BETAMETH SOD PHOS 6 MG/ML MDV IM SCH (15:30)
== END 2025-04-21 15:38 | disposition home or self-care (01) ==
LOC: FBPOP 15:14
PROVIDERS: ATTEND Obstetrics & Gynecology Obstetrics
DX: Z53.9 Procedure and treatment not carried out, unspecified reason (principal)